=== PATIENT | female | born 1945 | race Two or more races ===

== ENCOUNTER 2017-08-05 03:41 | Emergency (ER) | payer OTHER ==
[~2017-08-05] VITALS: Ht 167.6 cm; Wt 104.3 kg
[~2017-08-05 03:41] MED LIST: CLONAZEPAM0.5 M1; DEPAKOTE ER500 MG; NEURONTIN300 MG; TRAZODONE HCL100 MG; ZYPREXA10 M1
== END 2017-08-05 08:47 | disposition home or self-care (01) ==
LOC: ER 03:41
DX: K57.30 Diverticulosis of large intestine without perforation or abscess without bleeding (principal); K58.9 Irritable bowel syndrome, unspecified; R10.32 Left lower quadrant pain

== ENCOUNTER → 2017-09-05 | Emergency (ER) | payer OTHER ==
[~2017-09-05] VITALS: Ht 165.1 cm; Wt 90.7 kg
== END | disposition home or self-care (01) ==
LOC: ER 08:24
DX: K57.30 Diverticulosis of large intestine without perforation or abscess without bleeding (principal); R10.32 Left lower quadrant pain

== ENCOUNTER → 2017-10-08 | Day surgery (SDC) | payer OTHER | END | disposition home or self-care (01) | LOC: ADM 10-04 12:30 → AMB-ENDOS 08:26 | DX: K57.30 Diverticulosis of large intestine without perforation or abscess without bleeding (principal) ==

== ENCOUNTER 2017-10-10 08:21 | Outpatient (CLI) | payer OTHER | END 2017-10-10 08:26 | disposition home or self-care (01) | LOC: TOM 08:21 | DX: K57.20 Diverticulitis of large intestine with perforation and abscess without bleeding (principal); Z12.11 Encounter for screening for malignant neoplasm of colon ==

== ENCOUNTER 2018-05-15 08:49 | Emergency (ER) | payer OTHER ==
[~2018-05-15] VITALS: Ht 165.1 cm; Wt 81.6 kg
[2018-05-15] MEDS ORDERED: SYNTHROID75 MCG (09:13)
[2018-05-15] MEDS ORDERED: EXCILON1 EAC2 (09:13)
== END 2018-05-15 18:01 | disposition home or self-care (01) ==
LOC: ER 08:49
DX: R10.32 Left lower quadrant pain (principal)

== ENCOUNTER 2018-10-18 10:04 | Emergency (ER) | payer OTHER ==
[~2018-10-18] VITALS: Ht 165.1 cm; Wt 86.2 kg
[~2018-10-18 10:04] MED LIST changes: +EXCILON1 EAC2; +SYNTHROID75 MCG
[2018-10-18] MEDS ORDERED: PROTONIX20 MG PO (10:30)
[2018-10-18] MEDS ORDERED: CIPRO500 MG PO (14:26)
== END 2018-10-18 14:41 | disposition home or self-care (01) ==
LOC: ER 10:04
DX: E86.0 Dehydration (principal); R10.32 Left lower quadrant pain

== ENCOUNTER 2019-01-06 09:38 | Outpatient (CLI) | payer OTHER ==
[~2019-01-06 09:38] MED LIST changes: +CIPRO500 MG PO; +PROTONIX20 MG PO
== END 2019-01-06 09:51 | disposition home or self-care (01) ==
LOC: LAB 09:38
DX: M79.651 Pain in right thigh (principal); M79.604 Pain in right leg; M06.4 Inflammatory polyarthropathy; E03.8 Other specified hypothyroidism; G47.33 Obstructive sleep apnea (adult) (pediatric)

== ENCOUNTER 2019-01-10 09:05 | Outpatient (CLI) | payer OTHER | END 2019-01-10 13:29 | disposition home or self-care (01) | LOC: LAB 09:05 | DX: I10 Essential (primary) hypertension (principal); N39.0 Urinary tract infection, site not specified; D64.89 Other specified anemias; I49.8 Other specified cardiac arrhythmias; D68.8 Other specified coagulation defects; E11.9 Type 2 diabetes mellitus without complications; E55.9 Vitamin D deficiency, unspecified; E03.8 Other specified hypothyroidism; B95.62 Methicillin resistant Staphylococcus aureus infection as the cause of diseases classified elsewhere; E88.89 Other specified metabolic disorders; E83.42 Hypomagnesemia ==

== ENCOUNTER 2019-01-17 08:59 | Inpatient (IN) | payer OTHER ==
[~2019-01-17] VITALS: Ht 165.1 cm; Wt 81.6 kg
[2019-02-28] MEDS ORDERED: PROTONIX40 MG (11:24)
[2019-02-28] MEDS ORDERED: SYNTHROID125 MCG (11:25)
== END 2019-03-07 18:30 | DRG 470 ==
LOC: ADM 01-20 09:00 → O/R 03-03 06:00 → CIR.AMB 03-03 09:00 → SURH 03-03 09:00 → EDSTATUS 03-03 09:00 → SURG 03-03 18:25
PROVIDERS: ADMIT Orthopaedic Surgery
PROC: 0SRC0J9 Replacement of Right Knee Joint with Synthetic Substitute, Cemented, Open Approach (ICD-10-PCS; principal; 2019-03-03 14:45)
PROC: 02HV33Z Insertion of Infusion Device into Superior Vena Cava, Percutaneous Approach (ICD-10-PCS; 2019-03-06)
PROC: 30233N1 Transfusion of Nonautologous Red Blood Cells into Peripheral Vein, Percutaneous Approach (ICD-10-PCS; 2019-03-06)
DX: M17.11 Unilateral primary osteoarthritis, right knee (principal); D62 Acute posthemorrhagic anemia; E03.8 Other specified hypothyroidism; F25.0 Schizoaffective disorder, bipolar type

== ENCOUNTER 2019-02-20 10:13 | Outpatient (CLI) | payer OTHER | END 2019-02-20 17:45 | disposition home or self-care (01) | LOC: LAB 10:13 | DX: D64.89 Other specified anemias (principal); E88.89 Other specified metabolic disorders; D68.8 Other specified coagulation defects; N39.0 Urinary tract infection, site not specified; Z22.322 Carrier or suspected carrier of Methicillin resistant Staphylococcus aureus; I49.8 Other specified cardiac arrhythmias ==

== ENCOUNTER 2019-05-28 09:11 | Inpatient (IN) | payer OTHER ==
[~2019-05-28] VITALS: Ht 165.1 cm; Wt 92.5 kg
[~2019-05-28 09:11] MED LIST changes: +PROTONIX40 MG; +SYNTHROID125 MCG
== END 2019-05-31 17:45 | disposition home or self-care (01) | DRG 392 ==
LOC: ER 09:11 → MEDJ 18:16 → SEC-K 18:16 → MEDJ 18:47
PROVIDERS: ADMIT Internal Medicine
PROC: BW21ZZZ Computerized Tomography (CT Scan) of Abdomen and Pelvis (ICD-10-PCS; principal; 2019-05-28)
DX: K57.32 Diverticulitis of large intestine without perforation or abscess without bleeding (principal); K57.30 Diverticulosis of large intestine without perforation or abscess without bleeding; K58.8 Other irritable bowel syndrome; E86.0 Dehydration

== ENCOUNTER → 2020-03-17 | Emergency (ER) | payer OTHER ==
[~2020-03-17] VITALS: Ht 165.1 cm; Wt 90.7 kg
== END | disposition home or self-care (01) ==
LOC: ER 18:19
DX: R20.0 Anesthesia of skin (principal); R53.1 Weakness; Z03.818 Encounter for observation for suspected exposure to other biological agents ruled out

== ENCOUNTER → 2020-10-02 | Emergency (ER) | payer OTHER ==
[~2020-10-02] VITALS: Ht 165.1 cm; Wt 99.8 kg
[~2020-10-02] MED LIST changes: +CLONAZEPAM1 MG PO; +DEPAKOTE ER500 MG PO; +EXELON1 EAC1 TD; +SYNTHAMIN 173000 ML IV; +ULTRACET PO; +ZYPREXA20 MG PO
== END | disposition home or self-care (01) ==
LOC: ER 10:23
DX: K57.30 Diverticulosis of large intestine without perforation or abscess without bleeding (principal); F32.89 Other specified depressive episodes

== ENCOUNTER 2021-02-05 19:54 | Emergency (ER) | payer OTHER ==
[~2021-02-05] VITALS: Ht 165.1 cm; Wt 99.8 kg
[2021-02-05] MEDS ORDERED: TYLENOL EXTRA500 MG (20:17)
[2021-02-05] MEDS ORDERED: TRAZODONE HCL150 MG PO (21:45)
[2021-02-05] MEDS ORDERED: SYNTHROID112 MCG PO (21:47)
[2021-02-05] MEDS ORDERED: IBU800 MG PO (23:33)
== END 2021-02-05 23:39 | disposition home or self-care (01) ==
LOC: ER 19:54
DX: S00.03XA Contusion of scalp, initial encounter (principal); W18.39XA Other fall on same level, initial encounter; Y93.89 Activity, other specified; Y92.098 Other place in other non-institutional residence as the place of occurrence of the external cause; Y99.8 Other external cause status

== ENCOUNTER 2022-05-30 09:06 | Emergency (ER) | payer OTHER ==
[~2022-05-30] VITALS: Ht 165.1 cm; Wt 99.8 kg
[~2022-05-30 09:06] MED LIST changes: +IBU800 MG PO; +SYNTHROID112 MCG PO; +TRAZODONE HCL150 MG PO; +TYLENOL EXTRA500 MG
[2022-05-30] MEDS ORDERED: EXELON1 EAC1 PO (09:58)
[2022-05-30] MEDS ORDERED: WELLBUTRIN SR100 MG (09:59)
== END 2022-05-30 16:26 | disposition home or self-care (01) ==
LOC: ER 09:06
DX: R10.84 Generalized abdominal pain (principal); K57.92 Diverticulitis of intestine, part unspecified, without perforation or abscess without bleeding